=== PATIENT | female | born 1995 | race Caucasian/White ===

== ENCOUNTER 2018-06-20 16:47 | Emergency (ER) | payer OTHER ==
[2018-06-20 16:53] VITALS: RESP 16; TEMP 98.9
[2018-06-20] MEDS ORDERED: SODIUM CHLORIDE 0.9% 1,000 ML IV ONE (17:18)
--- NOTE | 2018-06-20 17:18 | ED ---
General Adult HPI - General Chief complaint: Vaginal Bleeding Stated complaint: Abd Pain Time Seen by Provider: 06/20/18 16:57 Source: patient, RN notes reviewed Mode of arrival: EMS Limitations: no limitations - History of Present Illness Initial comments: 23-year-old female with a history of type 2 diabetes on metformin presents to the emergency department for a chief complaint of heavy vaginal bleeding times one week. Patient states she is bleeding through a super tampon every hour or 2 an hour and a half. Patient states she is having sharp cramping pain from her low back shooting down to her groin area. Patient states she has experienced this before about 5 months ago and had heavy bleeding for one month. She did not follow-up with an [facility] at that time. Patient states she has pain when urinating as well. Patient denies urinary frequency or urgency. Patient denies any fevers or chills at home. Patient denies any concern for sexually transmitted diseases. Patient has a history of a uncomplicated vaginal delivery 3 years ago. She denies abdominal pain otherwise. She states she has been having loose stools without abdominal pain. Patient has no other complaints at this time including shortness of breath, chest pain, abdominal pain, nausea or vomiting, headache, or visual changes. Onset/Timin -: week(s) Location: pelvis Radiation: back Severity scale (1-10): 6 Quality: stabbing Consistency: intermittent Improves with: none Worsens with: none Associated Symptoms: other (vaginal bleeding) - Related Data Home Medications Medication Instructions Recorded Confirmed metFORMIN HCL [metFORMIN HCL ER] 1,000 mg PO BID 06/20/18 06/20/18 Previous Rx's Medication Instructions Recorded Cephalexin [Keflex] 500 mg PO Q8H 10 Days cap 06/20/18 Allergies Allergy/AdvReac Type Severity Reaction Status Date / Time No Known Allergies Allergy Verified 06/20/18 16:53 Review of Systems ROS Statement: Those systems with pertinent positive or pertinent negative responses have been documented in the HPI. ROS Other: All systems not noted in ROS Statement are negative. Past Medical History Past Medical History: Diabetes Mellitus History of Any Multi-Drug Resistant Organisms: None Reported Past Surgical History: No Surgical Hx Reported Past Psychological History: No Psychological Hx Reported Smoking Status: Current every day smoker Past Alcohol Use History: None Reported Past Drug Use History: None Reported General Exam Limitations: no limitations General appearance: alert, in no apparent distress Head exam: Present: atraumatic, normocephalic, normal inspection Eye exam: Present: normal appearance, PERRL, EOMI. Absent: scleral icterus, conjunctival injection, periorbital swelling ENT exam: Present: normal exam, mucous membranes moist Neck exam: Present: normal inspection, full ROM. Absent: tenderness, meningismus, lymphadenopathy Respiratory exam: Present: normal lung sounds bilaterally. Absent: respiratory distress, wheezes, rales, rhonchi, stridor Cardiovascular Exam: Present: regular rate, normal rhythm, normal heart sounds. Absent: systolic murmur, diastolic murmur, rubs, gallop, clicks GI/Abdominal exam: Present: soft, normal bowel sounds. Absent: distended, tenderness (No abdominal tenderness noted), guarding, rebound, rigid External exam: Present: normal external exam, other (Patient deferred chaperoned ). Absent: erythema, swelling, lesions, lacerations, ecchymosis Speculum exam: Present: vaginal bleeding (Patient has vaginal bleeding noted, no clots noted.). Absent: erythema, vaginal discharge, cervical discharge, foreign body, tissue, laceration By manual exam: Present: normal by manual exam. Absent: cervical motion tenderness, adnexal tenderness, adnexal mass (Exam limited by body habitus), uterine enlargement (Exam limited by body habitus), uterine tenderness Neurological exam: Present: alert, oriented X3, CN II-XII intact Psychiatric exam: Present: normal affect, normal mood Course Vital Signs 06/20/18 16:50 Temperature 98.9 F Pulse Rate 89 Respiratory 16 Rate Blood Pressure 156/74 O2 Sat by Pulse 98 Oximetry Medical Decision Making - Medical Decision Making 23-year-old well-appearing overweight female with a history of diabetes presents for heavy vaginal bleeding and pain 1 week. Patient has experienced this before about 5 months ago and has not had a period since. Patient is not on control. Vitals are within normal limits. Patient is afebrile. On exam no abdominal tenderness. Speculum exam reveals vaginal bleeding without significant tenderness. G/ C were sent to lab. Patient is not concerned for sexual transmitted diseases at this time. CBC and CMP were unremarkable. Hemoglobin 12.8. Ultrasound negative for torsion. At this time patient can go home. On reevaluation patient is feeling somewhat better from the pain and is well-appearing. Patient will follow up outpatient with Dr. bowling. Referral information was given. I did discuss returning if patient has any worsening symptoms such as shortness of breath or lightheadedness. - Lab Data Result diagrams: 06/20/18 17:28 06/20/18 17:28 Lab Results 06/20/18 06/20/18 06/20/18 Range/Units 17:23 17:23 17:28 WBC 13.7 H (3.8-10.6) k/uL RBC 5.16 (3.80-5.40) m/uL Hgb 12.4 (11.4-16.0) gm/dL Hct 39.4 (34.0-46.0) % MCV 76.3 L (80.0-100.0) fL MCH 24.0 L (25.0-35.0) pg MCHC 31.5 (31.0-37.0) g/dL RDW 16.3 H (11.5-15.5) % Plt Count 324 (150-450) k/uL Neutrophils % 70 % Lymphocytes % 21 % Monocytes % 5 % Eosinophils % 3 % Basophils % 0 % Neutrophils # 9.5 H (1.3-7.7) k/uL Lymphocytes # 2.8 (1.0-4.8) k/uL Monocytes # 0.7 (0-1.0) k/uL Eosinophils # 0.5 (0-0.7) k/uL Basophils # 0.1 (0-0.2) k/uL Hypochromasia Slight Anisocytosis Slight Microcytosis Slight Sodium (137-145) mmol/L Potassium (3.5-5.1) mmol/L Chloride (98-107) mmol/L Carbon Dioxide (22-30) mmol/L Anion Gap mmol/L BUN (7-17) mg/dL Creatinine (0.52-1.04) mg/dL Est GFR (CKD-EPI)AfAm (>60 ml/min/1.73 sqM) Est GFR (CKD-EPI)NonAf (>60 ml/min/1.73 sqM) Glucose (74-99) mg/dL Calcium (8.4-10.2) mg/dL Total Bilirubin (0.2-1.3) mg/dL AST (14-36) U/L ALT (9-52) U/L Alkaline Phosphatase (38-126) U/L Total Protein (6.3-8.2) g/dL Albumin (3.5-5.0) g/dL Urine Color Yellow Urine Appearance Clear (Clear) Urine pH 6.0 (5.0-8.0) Ur Specific [place] 1.028 (1.001-1.035) Urine Protein Trace H (Negative) Urine Glucose (UA) Negative (Negative) Urine Ketones Negative (Negative) Urine Blood Large H (Negative) Urine Nitrite Negative (Negative) Urine Bilirubin Negative (Negative) Urine Urobilinogen 2.0 (<2.0) mg/dL Ur Leukocyte Esterase Large H (Negative) Urine RBC 18 H (0-5) /hpf Urine WBC 34 H (0-5) /hpf Ur Squamous Epith Cells 2 (0-4) /hpf Urine Mucus Occasional H (None) /hpf Urine HCG, Qual Not Detected (Not Detectd) 06/20/18 Range/Units 17:28 WBC (3.8-10.6) k/uL RBC (3.80-5.40) m/uL Hgb (11.4-16.0) gm/dL Hct (34.0-46.0) % MCV (80.0-100.0) fL MCH (25.0-35.0) pg MCHC (31.0-37.0) g/dL RDW (11.5-15.5) % Plt Count (150-450) k/uL Neutrophils % % Lymphocytes % % Monocytes % % Eosinophils % % Basophils % % Neutrophils # (1.3-7.7) k/uL Lymphocytes # (1.0-4.8) k/uL Monocytes # (0-1.0) k/uL Eosinophils # (0-0.7) k/uL Basophils # (0-0.2) k/uL Hypochromasia Anisocytosis Microcytosis Sodium 142 (137-145) mmol/L Potassium 4.0 (3.5-5.1) mmol/L Chloride 111 H (98-107) mmol/L Carbon Dioxide 24 (22-30) mmol/L Anion Gap 7 mmol/L BUN 12 (7-17) mg/dL Creatinine 0.80 (0.52-1.04) mg/dL Est GFR (CKD-EPI)AfAm >90 (>60 ml/min/1.73 sqM) Est GFR (CKD-EPI)NonAf >90 (>60 ml/min/1.73 sqM) Glucose 98 (74-99) mg/dL Calcium 9.7 (8.4-10.2) mg/dL Total Bilirubin 0.2 (0.2-1.3) mg/dL AST 31 (14-36) U/L ALT 43 (9-52) U/L Alkaline Phosphatase 52 (38-126) U/L Total Protein 6.5 (6.3-8.2) g/dL Albumin 3.7 (3.5-5.0) g/dL Urine Color Urine Appearance (Clear) Urine pH (5.0-8.0) Ur Specific Calvin (1.001-1.035) Urine Protein (Negative) Urine Glucose (UA) (Negative) Urine Ketones (Negative) Urine Blood (Negative) Urine Nitrite (Negative) Urine Bilirubin (Negative) Urine Urobilinogen (<2.0) mg/dL Ur Leukocyte Esterase (Negative) Urine RBC (0-5) /hpf Urine WBC (0-5) /hpf Ur Squamous Epith Cells (0-4) /hpf Urine Mucus (None) /hpf Urine HCG, Qual (Not Detectd) Disposition Clinical Impression: Dysfunctional uterine bleeding Disposition: HOME SELF-CARE Condition: Good Instructions: Dysfunctional Uterine Bleeding (ED) Additional Instructions: Please follow up with [facility] in one to 2 days. Return to the emergency department if you have any worsening symptoms such as lightheadedness, shortness of breath or any other concerns. Prescriptions: Cephalexin [Keflex] 500 mg PO Q8H 10 Days cap Is patient prescribed a controlled substance at d/c from ED?: No Referrals: Lashonda Burt DO [Doctor of Osteopathic Medicine] - 1-2 days Time of Disposition: 19:31
[2018-06-20 17:40] LABS: Anisocytosis Slight; Basophils # (A) 0.1 k/uL (0-0.2); Basophils % (A) 0 %; Eosinophils # (A) 0.5 k/uL (0-0.7); Eosinophils % (A) 3 %; HCT 39.4 % (34.0-46.0); HGB 12.4 gm/dL (11.4-16.0); Hypochromasia Slight; Lymphocytes # (A) 2.8 k/uL (1.0-4.8); Lymphocytes % (A) 21 %; MCHC 31.5 g/dL (31.0-37.0); MCV 76.3 fL (80.0-100.0); Mean Platelet Volume 6.5; Microcytosis Slight; Monocytes # (A) 0.7 k/uL (0-1.0); Monocytes % (A) 5 %; Neutrophils # (A) 9.5 k/uL (1.3-7.7); Neutrophils % (A) 70 %; Platelet Count 324 k/uL (150-450); RBC 5.16 m/uL (3.80-5.40); RDW 16.3 % (11.5-15.5); WBC 13.7 k/uL (3.8-10.6)
[2018-06-20 17:47] LABS: Appearance,Urine Clear (Clear); Bilirubin,Urine Negative (Negative); Blood,Urine Large (Negative); Color,Urine Yellow; Glucose,Urine (UA) Negative (Negative); Ketones,Urine Negative (Negative); Leukocyte Esterase,Urine Large (Negative); Mucus,Urine Occasional /hpf; Nitrite,Urine Negative (Negative); Protein,Urine Trace (Negative); RBC,Urine 18 /hpf (0-5); Specific Gravity,Urine 1.028 (1.001-1.035); Squamous Epithelial Cell,Urine 2 /hpf (0-4); WBC,Urine 34 /hpf (0-5)
[2018-06-20 17:55] LABS: ALT 43 U/L (9-52); AST 31 U/L (14-36); Albumin 3.7 g/dL (3.5-5.0); Alkaline Phosphatase 52 U/L (38-126); Anion Gap 7 mmol/L; Blood Urea Nitrogen 12 mg/dL (7-17); Calcium 9.7 mg/dL (8.4-10.2); Carbon Dioxide 24 mmol/L (22-30); Chloride 111 mmol/L (98-107); Glucose 98 mg/dL (74-99); Sodium 142 mmol/L (137-145); Total Bilirubin 0.2 mg/dL (0.2-1.3); Total Protein 6.5 g/dL (6.3-8.2)
[2018-06-20] MEDS ORDERED: KETOROLAC 30 MG/ML 1 ML VIAL IVP STA (18:05)
--- NOTE | 2018-06-20 18:41 | US ---
EXAMINATION TYPE: US transvaginal DATE OF EXAM: 06/20/2018 COMPARISON: NONE CLINICAL HISTORY: Pain. dub, heavy cycles, larger habitus TECHNIQUE: Transvaginal (TV). Transvaginal sonographic images of the pelvis were acquired. EXAM MEASUREMENTS: Uterus: 9.0 x 4.2 x 5.8 cm Endometrial Stripe: 0.6 cm Right Ovary: 2.6 x 1.8 x 1.8 cm Left Ovary: 3.0 x 1.9 x 2.4 cm 1. Uterus: Anteverted wnl 2. Endometrium: wnl 3. Right Ovary: wnl 4. Left Ovary: wnl Spectral, color and waveform doppler imaging shows good arterial and venous flow within the ovaries ; there is no evidence for ovarian torsion. 5. Bilateral Adnexa: wnl 6. Posterior cul-de-sac: no free fluid seen IMPRESSION: Normal exam. No evidence of ovarian torsion. No adnexal mass or free fluid. Normal endome trium.
[2018-06-20 19:39] VITALS: BP 144/71; PULSE 78
[2018-06-21 15:45] LABS: C. trachomatis,PCR Negative (Neg,Equiv); Chlamydia trachomatis Source Vagina; N. gonorrhoeae,PCR Negative (Neg,Equiv); Neisseria Source Vagina
== END 2018-06-20 19:39 | disposition home or self-care (01) ==
LOC: EC 16:47
DX: N93.8 Other specified abnormal uterine and vaginal bleeding (principal); M54.5 Low back pain; E11.9 Type 2 diabetes mellitus without complications; F17.200 Nicotine dependence, unspecified, uncomplicated; Z79.84 Long term (current) use of oral hypoglycemic drugs
CPT/HCPCS: 36415; 80053; 85025; 81001; 81025; 87491; 87591; 87086; 93976; 76830; 99284; 96374; 96361; J1885

== ENCOUNTER 2019-01-03 15:47 | Emergency (ER) | payer OTHER ==
[2019-01-03 16:00] VITALS: BP 140/85; PULSE 84; RESP 18; TEMP 97.6
[2019-01-03] MEDS ORDERED: LIDOCAINE 1% INJ 10MG/ML (20 ML MDV) SQ STA (16:31)
--- NOTE | 2019-01-03 17:28 | ED ---
General Adult HPI - General Chief complaint: Skin/Abscess/Foreign Body Stated complaint: Nicole on groin area Time Seen by Provider: 01/03/19 16:10 Source: patient, RN notes reviewed, old records reviewed Mode of arrival: ambulatory Limitations: no limitations - History of Present Illness Initial comments: 23-year-old female patient past medical history of hidradenitis of provider presents to ED with abscess right axilla as well as left inguinal region. Patient reports that she has had recurrent abscesses for approximately the last 10 years. Patient recently moved to the area, is not currently followed by counseling center manager. Patient denies any other complaints. Patient denies any fevers chills nausea vomiting diarrhea chest pain shortness breath abdominal pain. Patient states that she is not . Systemic: Pt denies fatigue, myalgia, fever/chills, rash. Pt denies weakness, night sweats, weight loss. Neuro: Pt denies headache, visual disturbances, syncope or pre-syncope. HEENT: Pt denies ocular discharge or irritation, otalgia, rhinorrhea, pharyngitis or notable lymphadenopathy. Cardiopulmonary: Pt denies chest pain, SOB, heart palpitations, dyspnea on exertion. Abdominal/GI: Pt denies abdominal pain, n/v/d. : Pt denies dysuria, burning w/ urination, frequency/urgency. Denies new onset urinary or bowel incontinence. MSK: Pt denies myalgia, loss of strength or function in extremities. Neuro: Pt denies new onset weakness, paresthesias. - Related Data Home Medications Medication Instructions Recorded Confirmed Acetaminophen Tab [Tylenol] 1,200 mg PO Q12HR 01/03/19 01/03/19 Ibuprofen [Motrin Ib] 800 mg PO Q12HR 01/03/19 01/03/19 Previous Rx's Medication Instructions Recorded Sulfamethox-Tmp 800-160Mg [Bactrim 1 tab PO Q12HR #20 tab 01/03/19 DS 800-160 mg] Allergies Allergy/AdvReac Type Severity Reaction Status Date / Time No Known Allergies Allergy Verified 01/03/19 16:11 Review of Systems ROS Statement: Those systems with pertinent positive or pertinent negative responses have been documented in the HPI. ROS Other: All systems not noted in ROS Statement are negative. Past Medical History Past Medical History: Diabetes Mellitus History of Any Multi-Drug Resistant Organisms: None Reported Past Surgical History: No Surgical Hx Reported Past Psychological History: No Psychological Hx Reported Smoking Status: Current every day smoker Past Alcohol Use History: None Reported Past Drug Use History: None Reported General Exam - General Exam Comments Initial Comments: Constitutional: NAD, AOX3, Pt has pleasant affect. HEENT: NC/AT, trachea midline, neck supple, no lymphadenopathy. Posterior pharynx non erythematous, without exudates. External ears appear normal, without discharge. Mucous membranes moist. Eyes PERRLA, EOM intact. There is no scleral icterus. No pallor noted. Cardiopulmonary: RRR, no murmurs, rubs or gallops, no JVD noted. Lungs CTAB in anterior and posterior paulino. No peripheral edema. Abdominal exam: Abdomen soft and non-distended. Abdomen non-tender to palpation in all 4 quadrants. Bowel sounds active in LLQ. No hepatosplenomegaly. No ecchymosis Neuro: CN II-XII grossly intact. No nuchal rigidity. MSK: No posterior calf tenderness bilaterally, homans sign negative bilaterally. Posterior tibialis and radial pulse +2 bilaterally. Sensation intact in upper and lower extremities. Full active ROM in upper and lower extremities, 5/5 stregnth. Derm: Approximately 3 x 3 cm abscess noted in right axilla, small amount of purulent drainage was expressed. Approximately 3 x 3 cm noted left posterior inguinal region. Small amount of purulent fluid was expressed. Cultures taken of both. Limitations: no limitations Course Vital Signs 01/03/19 15:58 Temperature 97.6 F Pulse Rate 84 Respiratory 18 Rate Blood Pressure 140/85 O2 Sat by Pulse 96 Oximetry Procedures - Incision & Drainage Consent Obtained: verbal consent Indication: abscess Site: buttock (left inguinal region (2) ), upper extremity (right axillae (1) ) Size (cm): 3 Anesthetic Used: lidocaine 1% Amount (mLs): 3 I&D Cleaning Method: Alcohol Wipe I&D Drainage Obtained: Pus Culture Obtained?: Yes Patient Tolerated Procedure: well Medical Decision Making - Medical Decision Making 23-year-old female patient past medical history of hidradenitis of provider presents to ED with abscess right axilla as well as left inguinal region. Patient reports that she has had recurrent abscesses for approximately the last 10 years. Patient recently moved to the area, is not currently followed by counseling center manager. Patient denies any other complaints. Patient denies any fevers chills nausea vomiting diarrhea chest pain shortness breath abdominal pain. Patient states that she is not . Pt VSS, afebrile. Physical exam displayed: Approximately 3 x 3 cm abscess noted in right axilla, small amount of purulent drainage was expressed. Approximately 3 x 3 cm noted left posterior inguinal region. Small amount of purulent fluid was expressed. Cultures taken of both. Pt will be discharged with bactrim prescription. Pt will be given referral for PCP as well as counseling center manager. Pt will return to ER if condition worsens in anyway. Case discussed with Dr. Smith. Disposition Clinical Impression: Abscess Disposition: HOME SELF-CARE Condition: Stable Instructions (If sedation given, give patient instructions): Abscess Incision and Drainage (ED) Additional Instructions: Patient to adhere to previously discussed treatment plan and will take medication(s) as directed. Patient to follow up with PCP in 1-2 days. Patient to return to ED if symptoms do not improve. Please take medication as prescribed. Please follow-up both with counseling center manager as well as primary care provider - pick one to contact. Return to ER if condition worsens. Prescriptions: Sulfamethox-Tmp 800-160Mg [Bactrim DS 800-160 mg] 1 tab PO Q12HR #20 tab Is patient prescribed a controlled substance at d/c from ED?: No Referrals: None,Stated [Primary Care Provider] - 1-2 days [facility] [NON-STAFF] - 1-2 days Windy Sanchez MD [STAFF PHYSICIAN] - 1-2 days Ansley Moyer MD [REFERRING] - 1-2 days Joe Perera MD [STAFF PHYSICIAN] - 1-2 days
== END 2019-01-03 17:43 | disposition home or self-care (01) ==
LOC: EC 15:47
DX: L02.411 Cutaneous abscess of right axilla (principal); Z79.1 Long term (current) use of non-steroidal anti-inflammatories (NSAID); Z79.899 Other long term (current) drug therapy
CPT/HCPCS: 87070; 87205; 99283; 10060; J2001

== ENCOUNTER 2019-04-04 16:09 | Emergency (ER) | payer OTHER ==
[2019-04-04 16:18] VITALS: RESP 18; TEMP 98.1
--- NOTE | 2019-04-04 17:05 | ED ---
Female Urogenital HPI - General Chief complaint: Vaginal Bleeding Stated complaint: FEMALE , HEAVY BLEEDING X 1 MONTH Time Seen by Provider: 04/04/19 16:35 Source: patient Mode of arrival: ambulatory - History of Present Illness Initial comments: Patient is a 23-year-old female presenting to emergency Department with complaints of vaginal bleeding x 1 month. Patient states she tried to get into her PCP office but was unable to for another month and "wants the bleeding to s top." Patient states she has been going through 10- 20 tampons a day for the last month and having menstrual cramping as well. Patient states her PCP had her try control pills to help regulate her period and they did not work so she stopped taking them. Patient is denying any fever, chills, nausea, vomiting, other abdominal pain other than the cramping. Patient denies chance of . Patient denies any other complaints at this time. - Related Data Home Medications Medication Instructions Recorded Confirmed Acetaminophen Tab [Tylenol] 1,200 mg PO Q12HR 01/03/19 01/03/19 Ibuprofen [Motrin Ib] 800 mg PO Q12HR 01/03/19 01/03/19 Previous Rx's Medication Instructions Recorded Sulfamethox-Tmp 800-160Mg [Bactrim 1 tab PO Q12HR #20 tab 01/03/19 DS 800-160 mg] Allergies Allergy/AdvReac Type Severity Reaction Status Date / Time No Known Allergies Allergy Verified 04/04/19 16:18 Review of Systems ROS Statement: Those systems with pertinent positive or pertinent negative responses have been documented in the HPI. ROS Other: All systems not noted in ROS Statement are negative. Past Medical History Past Medical History: Diabetes Mellitus History of Any Multi-Drug Resistant Organisms: None Reported Past Surgical History: No Surgical Hx Reported Past Psychological History: No Psychological Hx Reported Smoking Status: Current every day smoker Past Alcohol Use History: None Reported Past Drug Use History: None Reported General Exam - General Exam Comments Initial Comments: GENERAL: Well-appearing, well-nourished and in no acute distress. HEAD: Atraumatic, normocephalic. EYES: Pupils equal round and reactive to light, extraocular movements intact, sclera anicteric, conjunctiva are normal. ENT: Nares patent, oropharynx clear without exudates. Moist mucous membranes. NECK: Normal range of motion, supple without lymphadenopathy or JVD. LUNGS: Breath sounds clear to auscultation bilaterally and equal. No wheezes r ales or rhonchi. HEART: Regular rate and rhythm without murmurs, rubs or gallops. ABDOMEN: Soft, nontender, normoactive bowel sounds. No guarding, no rebound. No masses appreciated. : Deferred, declined at this time EXTREMITIES: Normal range of motion, no pitting or edema. No clubbing or cyanos is. NEUROLOGICAL: Cranial nerves II through XII grossly intact. Normal speech, normal gait. PSYCH: Normal mood, normal affect. SKIN: Warm, Dry, normal turgor, no rashes or lesions noted. Course Vital Signs 04/04/19 04/04/19 16:16 18:09 Temperature 98.1 F 98.1 F Pulse Rate 92 91 Respiratory 18 18 Rate Blood Pressure 138/80 151/76 O2 Sat by Pulse 97 95 Oximetry Medical Decision Making - Medical Decision Making Patient is a 23-year-old female complaints of vaginal bleeding times one month. Patient states her PCP had her do a trial of control pills the patient stopped after 2 weeks after the bleeding did not stop. Patient admits to mild lower abdominal cramping but no abdominal pain. Patient also denies fever, chills, nausea, vomiting. Patient declined vaginal exam at this time. Patient's CBC is within normal limits, hemoglobin is 11.0. CMP is within normal limits. UA shows signs of dehydration with 2+ protein and trace ketones. Patient is not . Patient was given referral for [facility] and will follow up with them and/or her PCP for further treatment. Patient will be discharged home and she is in agreement with this plan. Return parameters were discussed with the patient and she verbalized understanding. Case is discussed with Dr. Farah. - Lab Data Result diagrams: 04/04/19 17:21 04/04/19 17:21 Lab Results 04/04/19 04/04/19 04/04/19 Range/Units 17:21 17:21 17:21 WBC 10.3 (3.8-10.6) k/uL RBC 4.90 (3.80-5.40) m/uL Hgb 11.0 L (11.4-16.0) gm/dL Hct 35.4 (34.0-46.0) % MCV 72.3 L (80.0-100.0) fL MCH 22.4 L (25.0-35.0) pg MCHC 31.0 (31.0-37.0) g/dL RDW 16.1 H (11.5-15.5) % Plt Count 430 (150-450) k/uL Neutrophils % 56 % Lymphocytes % 32 % Monocytes % 5 % Eosinophils % 4 % Basophils % 1 % Neutrophils # 5.8 (1.3-7.7) k/uL Lymphocytes # 3.2 (1.0-4.8) k/uL Monocytes # 0.6 (0-1.0) k/uL Eosinophils # 0.4 (0-0.7) k/uL Basophils # 0.1 (0-0.2) k/uL Hypochromasia Marked Anisocytosis Slight Microcytosis Moderate Sodium 142 (137-145) mmol/L Potassium 4.2 (3.5-5.1) mmol/L Chloride 113 H (98-107) mmol/L Carbon Dioxide 20 L (22-30) mmol/L Anion Gap 9 mmol/L BUN 13 (7-17) mg/dL Creatinine 0.70 (0.52-1.04) mg/dL Est GFR (CKD-EPI)AfAm >90 (>60 ml/min/1.73 sqM) Est GFR (CKD-EPI)NonAf >90 (>60 ml/min/1.73 sqM) Glucose 86 (74-99) mg/dL Calcium 9.6 (8.4-10.2) mg/dL Total Bilirubin 0.3 (0.2-1.3) mg/dL AST 31 (14-36) U/L ALT 36 (9-52) U/L Alkaline Phosphatase 61 (38-126) U/L Total Protein 6.9 (6.3-8.2) g/dL Albumin 3.8 (3.5-5.0) g/dL Urine Color Urine Appearance (Clear) Urine pH (5.0-8.0) Ur Specific [place] (1.001-1.035) Urine Protein (Negative) Urine Glucose (UA) (Negative) Urine Ketones (Negative) Urine Blood (Negative) Urine Nitrite (Negative) Urine Bilirubin (Negative) Urine Urobilinogen (<2.0) mg/dL Ur Leukocyte Esterase (Negative) Urine RBC (0-5) /hpf Ur Squamous Epith Cells (0-4) /hpf Urine Mucus (None) /hpf Urine HCG, Qual Not Detected (Not Detectd) 04/04/19 Range/Units 17:21 WBC (3.8-10.6) k/uL RBC (3.80-5.40) m/uL Hgb (11.4-16.0) gm/dL Hct (34.0-46.0) % MCV (80.0-100.0) fL MCH (25.0-35.0) pg MCHC (31.0-37.0) g/dL RDW (11.5-15.5) % Plt Count (150-450) k/uL Neutrophils % % Lymphocytes % % Monocytes % % Eosinophils % % Basophils % % Neutrophils # (1.3-7.7) k/uL Lymphocytes # (1.0-4.8) k/uL Monocytes # (0-1.0) k/uL Eosinophils # (0-0.7) k/uL Basophils # (0-0.2) k/uL Hypochromasia Anisocytosis Microcytosis Sodium (137-145) mmol/L Potassium (3.5-5.1) mmol/L Chloride (98-107) mmol/L Carbon Dioxide (22-30) mmol/L Anion Gap mmol/L BUN (7-17) mg/dL Creatinine (0.52-1.04) mg/dL Est GFR (CKD-EPI)AfAm (>60 ml/min/1.73 sqM) Est GFR (CKD-EPI)NonAf (>60 ml/min/1.73 sqM) Glucose (74-99) mg/dL Calcium (8.4-10.2) mg/dL Total Bilirubin (0.2-1.3) mg/dL AST (14-36) U/L ALT (9-52) U/L Alkaline Phosphatase (38-126) U/L Total Protein (6.3-8.2) g/dL Albumin (3.5-5.0) g/dL Urine Color Red Urine Appearance Cloudy H (Clear) Urine pH 6.0 (5.0-8.0) Ur Specific [place] 1.030 (1.001-1.035) Urine Protein 2+ H (Negative) Urine Glucose (UA) Negative (Negative) Urine Ketones Trace H (Negative) Urine Blood Large H (Negative) Urine Nitrite Negative (Negative) Urine Bilirubin Negative (Negative) Urine Urobilinogen <2.0 (<2.0) mg/dL Ur Leukocyte Esterase Moderate H (Negative) Urine RBC >182 H (0-5) /hpf Ur Squamous Epith Cells 2 (0-4) /hpf Urine Mucus Occasional H (None) /hpf Urine HCG, Qual (Not Detectd) Disposition Clinical Impression: Menorrhagia Disposition: HOME SELF-CARE Condition: Stable Instructions (If sedation given, give patient instructions): Menstruation (ED) Additional Instructions: Please return to the Emergency Department if symptoms worsen or any other concerns. Follow-up with PCP and/or [facility]. Is patient prescribed a controlled substance at d/c from ED?: No Referrals: Jean Monson MD [Primary Care Provider] - 1-2 days Laci Gonzalez DO [Doctor of Osteopathic Medicine] - 1-2 days
[2019-04-04 17:36] LABS: Anisocytosis Slight; Basophils # (A) 0.1 k/uL (0-0.2); Basophils % (A) 1 %; Eosinophils # (A) 0.4 k/uL (0-0.7); Eosinophils % (A) 4 %; HCT 35.4 % (34.0-46.0); Hypochromasia Marked; Lymphocytes # (A) 3.2 k/uL (1.0-4.8); Lymphocytes % (A) 32 %; MCH 22.4 pg (25.0-35.0); MCV 72.3 fL (80.0-100.0); Mean Platelet Volume 7.1; Microcytosis Moderate; Monocytes # (A) 0.6 k/uL (0-1.0); Monocytes % (A) 5 %; Neutrophils # (A) 5.8 k/uL (1.3-7.7); Neutrophils % (A) 56 %; Platelet Count 430 k/uL (150-450); RDW 16.1 % (11.5-15.5); WBC 10.3 k/uL (3.8-10.6)
[2019-04-04 17:43] LABS: Appearance,Urine Cloudy (Clear); Bilirubin,Urine Negative (Negative); Blood,Urine Large (Negative); Color,Urine Red; Glucose,Urine (UA) Negative (Negative); Ketones,Urine Trace (Negative); Leukocyte Esterase,Urine Moderate (Negative); Mucus,Urine Occasional /hpf; Nitrite,Urine Negative (Negative); Protein,Urine 2+ (Negative); RBC,Urine >182 /hpf (0-5); Squamous Epithelial Cell,Urine 2 /hpf (0-4); Urobilinogen,Urine <2.0 mg/dL (<2.0)
[2019-04-04 17:44] LABS: ALT 36 U/L (9-52); AST 31 U/L (14-36); African American GFR (CKD) >90 (>60 ml/min/1.73 sqM); Albumin 3.8 g/dL (3.5-5.0); Alkaline Phosphatase 61 U/L (38-126); Anion Gap 9 mmol/L; Blood Urea Nitrogen 13 mg/dL (7-17); Calcium 9.6 mg/dL (8.4-10.2); Carbon Dioxide 20 mmol/L (22-30); Chloride 113 mmol/L (98-107); Glucose 86 mg/dL (74-99); Potassium 4.2 mmol/L (3.5-5.1); Sodium 142 mmol/L (137-145); Total Bilirubin 0.3 mg/dL (0.2-1.3); Total Protein 6.9 g/dL (6.3-8.2)
[2019-04-04 18:10] VITALS: BP 151/76; PULSE 91
== END 2019-04-04 18:09 | disposition home or self-care (01) ==
LOC: EC 16:09
DX: N92.0 Excessive and frequent menstruation with regular cycle (principal); F17.200 Nicotine dependence, unspecified, uncomplicated; Z79.899 Other long term (current) drug therapy; Z79.1 Long term (current) use of non-steroidal anti-inflammatories (NSAID); Z53.20 Procedure and treatment not carried out because of patient's decision for unspecified reasons
CPT/HCPCS: 36415; 80053; 81001; 81025; 85025; 99284

== ENCOUNTER 2019-04-19 16:14 | Emergency (ER) | payer OTHER ==
[2019-04-19 16:19] VITALS: BP 149/87; PULSE 100; RESP 20; TEMP 98
--- NOTE | 2019-04-19 16:26 | ED ---
Lower Extremity Injury HPI - General Chief Complaint: Extremity Injury, Lower Stated Complaint: Ankle injury Time Seen by Provider: 04/19/19 16:16 Source: patient Mode of arrival: ambulatory Limitations: no limitations - History of Present Illness Initial Comments: 24yo female presenting today for chief complaint of left ankle pain 1 hour. Patient states she has prior to arrival she was walking distracted looking at a dog when she stepped on an uneven piece of grass/sidewalk and inverted her left ankle inward. Patient states she did fall to both knees she denies any abrasions lacerations and inability to weight-bear. Patient state she is able to walk on the left ankle. Patient states after the fall she noted left ankle pain denies foot pain denies bruising. Patient denies any ankle swelling. Patient denies any head injury to the head or neck. Denies any pain of the upper extremities wrist or shoulders. Patient was concerned of the left ankle pain and wanted to make sure is not fractured presents emergency department for evaluation. Upon arrival to emergency Department patient was and laboratory. She is weightbearing on the left ankle. No signs of acute distress patient appears well - Related Data Home Medications Medication Instructions Recorded Confirmed Acetaminophen Tab [Tylenol] 1,200 mg PO Q12HR 01/03/19 01/03/19 RX: Ibuprofen [Motrin Ib] 800 mg PO Q12HR 01/03/19 01/03/19 Previous Rx's Medication Instructions Recorded Sulfamethox-Tmp 800-160Mg [Bactrim 1 tab PO Q12HR #20 tab 01/03/19 DS 800-160 mg] Allergies Allergy/AdvReac Type Severity Reaction Status Date / Time No Known Allergies Allergy Verified 04/19/19 16:19 Review of Systems ROS Statement: Those systems with pertinent positive or pertinent negative responses have been documented in the HPI. ROS Other: All systems not noted in ROS Statement are negative. Past Medical History Past Medical History: Diabetes Mellitus History of Any Multi-Drug Resistant Organisms: None Reported Past Surgical History: No Surgical Hx Reported Past Psychological History: No Psychological Hx Reported Smoking Status: Current every day smoker Past Alcohol Use History: None Reported Past Drug Use History: None Reported General Exam - General Exam Comments Initial Comments: General: The patient is awake and alert, in no distress, and does not appear acutely ill. Eye: Extra-ocular movements are intact. No nystagmus. There is normal conjunctiva bilaterally. No signs of icterus. Cardiovascular: There is a regular rate and rhythm. No murmur, rub or gallop is appreciated. Respiratory: Lungs are clear to auscultation, respirations are non-labored, breath sounds are equal. No wheezes, stridor, rales, or rhonchi. Gastrointestinal: Soft, non-distended, non-tender abdomen without masses or organomegaly noted. There is no rebound or guarding present. No CVA tenderness. Bowel sounds are unremarkable. Musculoskeletal: Upon inspection of the ankles bilaterally there is no evidence of soft tissue injury. No noted swelling of the ankles bilaterally. Inspection of the knees reveals no abrasion soft tissue swelling or redness. There is no swelling of the knee joints. Extensor mechanism is intact bilaterally. No pain or difficulty with range of motion of the knees. Patient has pain with range motion of the left ankle. This does appear mild, no grimacing or protective posturing. She is able to weight-bear without difficulty. Strength 5/5 at the knees and ankles bilaterally. There is diffuse tenderness to palpation over the ankle mortise. Patient has no tenderness to palpation of the forefoot. Sensation intact both proximal distal to injury site. Radial and DP pulses equal bilaterally 2+. No bruising noted on the plantar surface of the foot. Neurological: A&O x 3. CN II-XII intact, There are no obvious motor or sensory deficits. Coordination appears grossly intact. Speech is normal. Skin: Skin is warm and dry and no rashes or lesions are noted. Psychiatric: Cooperative, appropriate mood & affect, normal judgment. Limitations: no limitations Course Vital Signs 04/19/19 16:16 Temperature 98 F Pulse Rate 100 Respiratory 20 Rate Blood Pressure 149/87 O2 Sat by Pulse 96 Oximetry Medical Decision Making - Medical Decision Making Appearing 24yo female presented for left ankle sprain after inversion injury. Occurred today. No obvious injury on physical examination equal comparison to the right. Assessment from tenderness with range of motion. Patient is able to weight-bear and walk without difficulty. Imaging studies revealing no acute osseous process. Patient is placed in a air stirrup given Rice instruction. Repeat neurovascular exam after splinting was unchanged from initial. Patient neurovascular intact. Compartments are soft and compressible. No pain at the knees. At this time feel patient is stable for discharge with outpatient primary care follow-up. Disposition Clinical Impression: Left ankle sprain Disposition: HOME SELF-CARE Condition: Good Instructions (If sedation given, give patient instructions): Ankle Sprain (ED), R.I.C.E. Treatment (ED) Additional Instructions: Please use medication as discussed. Please follow-up with family doctor in 7 days for re-evaluation. Please return to emergency room if the symptoms increase or worsen or for any other concerns. Is patient prescribed a controlled substance at d/c from ED?: No Referrals: Jean Monson MD [Primary Care Provider] - 1-2 days Time of Disposition: 16:59
--- NOTE | 2019-04-19 16:56 | XR ---
EXAMINATION TYPE: XR ankle complete LT DATE OF EXAM: 04/19/2019 COMPARISON: NONE HISTORY: Pain FINDINGS: Three views of the ankle demonstrate the ankle mortise to be intact and symmetric. The joint spaces are preserved. The osseous structures are intact. Soft tissue edema noted. IMPRESSION: 1. No definite acute fracture or dislocation, if symptoms persist follow-up study in 7 to 10 days wou ld be suggested.
== END 2019-04-19 17:00 | disposition home or self-care (01) ==
LOC: EC 16:14
DX: S93.402A Sprain of unspecified ligament of left ankle, initial encounter (principal); F17.200 Nicotine dependence, unspecified, uncomplicated; Z79.1 Long term (current) use of non-steroidal anti-inflammatories (NSAID); Z79.899 Other long term (current) drug therapy; W18.31XA Fall on same level due to stepping on an object, initial encounter; X50.9XXA Other and unspecified overexertion or strenuous movements or postures, initial encounter; Y92.219 Unspecified school as the place of occurrence of the external cause
CPT/HCPCS: 29515; 99283

== ENCOUNTER → 2020-04-19 | Outpatient (CLI) | payer BC, OTHER ==
--- NOTE | 2020-04-19 10:31 | US ---
EXAMINATION TYPE: US pelvis complete transvag DATE OF EXAM: 04/19/2020 COMPARISON: US 06/20/2018 CLINICAL HISTORY: N92.1 METRORRHAGIA. Heavy bleeding x4 days TECHNIQUE: . Transabdominal sonographic images of the pelvis were acquired. Transvaginal sonographi c images were medically necessary to better assess the following anatomy: Uterus and ovaries Date of LMP: Patient states she had a cycle around 2 weeks ago EXAM MEASUREMENTS: Uterus: 7.6 x 3.8 x 4.8 cm Endometrial Stripe: 0.8 cm Right Ovary: 3.7 x 1.9 x 2.7 cm Left Ovary: 3.0 x 2.1 x 1.9 cm 1. Uterus: Anteverted wnl 2. Endometrium: wnl 3. Right Ovary: wnl 4. Left Ovary: wnl 5. Bilateral Adnexa: wnl 6. Posterior cul-de-sac: wnl Color flow noted right ovary IMPRESSION: No significant abnormalities evident.
[2020-04-19 10:40] LABS: Anisocytosis Slight; HCT 36.2 % (34.0-46.0); HGB 11.2 gm/dL (11.4-16.0); Hypochromasia Moderate; MCH 22.4 pg (25.0-35.0); MCHC 30.9 g/dL (31.0-37.0); MCV 72.7 fL (80.0-100.0); Mean Platelet Volume 7.3; Microcytosis Moderate; Platelet Count 431 k/uL (150-450); RBC 4.98 m/uL (3.80-5.40); RDW 16.9 % (11.5-15.5); WBC 13.5 k/uL (3.8-10.6)
[2020-04-19 10:52] LABS: ALT 35 U/L (4-34); AST 34 U/L (14-36); African American GFR (CKD) >90 (>60 ml/min/1.73 sqM); Albumin 4.1 g/dL (3.5-5.0); Alkaline Phosphatase 60 U/L (38-126); Anion Gap 7 mmol/L; Blood Urea Nitrogen 12 mg/dL (7-17); Calcium 9.8 mg/dL (8.4-10.2); Carbon Dioxide 24 mmol/L (22-30); Chloride 111 mmol/L (98-107); Glucose 140 mg/dL (74-99); Non-African American GFR(CKD) >90 (>60 ml/min/1.73 sqM); Potassium 4.2 mmol/L (3.5-5.1); Sodium 142 mmol/L (137-145); Total Bilirubin 0.4 mg/dL (0.2-1.3); Total Protein 7.2 g/dL (6.3-8.2)
[2020-04-19 11:07] LABS: HCG,Quantitative Serum <2.4 mIU/mL
== END | disposition home or self-care (01) ==
LOC: RADUSWWP 09:55
PROVIDERS: ATTEND Obstetrics & Gynecology
DX: N92.1 Excessive and frequent menstruation with irregular cycle (principal); N92.0 Excessive and frequent menstruation with regular cycle; R10.2 Pelvic and perineal pain
CPT/HCPCS: 76830; 76856; 80053; 84702; 85027

== ENCOUNTER 2020-09-25 18:33 | Emergency (ER) | payer BC, OTHER ==
[2020-09-25 18:43] VITALS: BP 164/81; TEMP 98
[2020-09-25] MEDS ORDERED: DOXYCYCLINE 100 MG CAP PO STA (19:18)
[2020-09-25] MEDS ORDERED: LIDOCAINE 1% INJ 10MG/ML (20 ML MDV) SQ ONE (19:18)
--- NOTE | 2020-09-25 19:24 | ED ---
Skin/Abscess/FB HPI - General Chief complaint: Skin/Abscess/Foreign Body Stated complaint: abcesses Time Seen by Provider: 09/25/20 19:02 Source: patient Mode of arrival: ambulatory Limitations: no limitations - History of Present Illness Initial comments: 25-year-old female patient presents to the emergency department today for evaluation of multiple abscesses. Patient has past history significant for hidradenitis suppurativa. States that she has had an abscess to the right buttock for the last 3 weeks. States it keeps getting larger and more painful. States she has one to each of her medial thighs. She denies any fever or chills. Denies nausea or vomiting. States that she has been on antibiotic regimens in the past that have not helped with her condition. No antibiotics recently. Denies any chance of . Patient denies any recent rash, cough, shortness of breath, chest pain, abdominal pain, nausea, vomiting, diarrhea, constipation, back pain, numbness, tingling, dizziness, weakness, hematuria, dysuria, urinary urgency, urinary frequency, headache, visual changes, or any other complaints. - Related Data Home Medications Medication Instructions Recorded Confirmed B Complex-Vit C-Vit E-Zinc [Z-Bec] 1 tab PO DAILY 03/01/20 03/01/20 Ergocalciferol [Vitamin D2] 50,000 unit PO Q7D 03/01/20 03/01/20 Zinc 50 mg PO DAILY 03/01/20 03/01/20 metFORMIN HCL [Glucophage] 500 mg PO BID 03/01/20 03/01/20 Previous Rx's Medication Instructions Recorded Doxycycline Hyclate 100 mg PO Q12H #28 tab 09/25/20 Fluconazole [Diflucan] 150 mg PO ONCE #2 tab 09/25/20 Ibuprofen [Motrin] 600 mg PO Q8HR PRN #30 tab 09/25/20 Allergies Allergy/AdvReac Type Severity Reaction Status Date / Time No Known Allergies Allergy Verified 03/01/20 15:17 Review of Systems ROS Statement: Those systems with pertinent positive or pertinent negative responses have been documented in the HPI. ROS Other: All systems not noted in ROS Statement are negative. Past Medical History Past Medical History: Diabetes Mellitus, Hypertension, Thyroid Disorder Additional Past Medical History / Comment(s): Hydroadenitis Suppurativa, Vitamin d deficiency History of Any Multi-Drug Resistant Organisms: None Reported Past Surgical History: No Surgical Hx Reported Past Anesthesia/Blood Transfusion Reactions: No Reported Reaction Past Psychological History: Anxiety Smoking Status: Current every day smoker Past Alcohol Use History: None Reported Past Drug Use History: None Reported General Exam Limitations: no limitations General appearance: alert, in no apparent distress, other (Physical well- developed, well-nourished adult female patient in no acute distress. Vital sig ns upon presentation are temperature 98.0F, pulse 113, respirations 20, blood pressure 164/81, pulse ox 97% on room air.) ENT exam: Present: normal exam, normal oropharynx, mucous membranes moist Respiratory exam: Present: normal lung sounds bilaterally. Absent: respiratory distress, wheezes, rales, rhonchi, stridor Cardiovascular Exam: Present: regular rate, normal rhythm, normal heart sounds. Absent: systolic murmur, diastolic murmur, rubs, gallop, clicks Neurological exam: Present: alert, oriented X3, CN II-XII intact Psychiatric exam: Present: normal affect, normal mood Skin exam: Present: warm, dry, intact, normal color. Absent: rash Course Vital Signs 09/25/20 09/25/20 18:40 20:39 Temperature 98.0 F Pulse Rate 113 H 101 H Respiratory 20 16 Rate Blood Pressure 164/81 O2 Sat by Pulse 97 95 Oximetry Procedures - Incision & Drainage Consent Obtained: verbal consent, written consent Indication: abscess Site: buttock (Right), other (2cm abscess right medial thigh, 4cm abscess left medial thigh) Size (cm): 5 (Right buttock) Anesthetic Used: lidocaine 1% Amount (mLs): 6 I&D Cleaning Method: Betadine Scalpel Used: #11 I&D Drainage Obtained: Pus, Blood Culture Obtained?: Yes Patient Tolerated Procedure: well, no complications Medical Decision Making - Medical Decision Making 25-year-old female patient with past medical history significant for hidradenitis suppurativa presents to the emergency department today for evaluation of multiple abscesses. Physical examination did reveal 5 cm abscess to the right buttock, 2 cm abscess to the right medial thigh, 4 cm abscess to the left medial thigh. Each abscess was incised and drained. I did obtain pus and blood. Culture was obtained from the right buttock. She'll be started on doxycycline. She is instructed to follow-up with her primary care physician for recheck in 1-2 days. She is instructed to follow-up with surgery if her symptoms did improve with the medication. She is educated regarding sitz baths and warm compresses. Return parameters discussed in detail. She verbalizes understanding and agrees with this plan. Disposition Clinical Impression: Abscess of right buttock, Abscess of right thigh, Abscess of left thigh Disposition: HOME SELF-CARE Condition: Good Instructions (If sedation given, give patient instructions): Abscess Incision and Drainage (ED) Additional Instructions: Apply warm compresses or take warm baths is soft as possible. Promote drainage from the areas. Complete antibiotic prescription in full. Follow-up with your primary care physician for recheck in 1-2 days. Consider follow-up with surgeon at the antibiotic does not improve symptoms. Return for any other new, worsening, or concerning symptoms. Prescriptions: Fluconazole [Diflucan] 150 mg PO ONCE #2 tab Doxycycline Hyclate 100 mg PO Q12H #28 tab Ibuprofen [Motrin] 600 mg PO Q8HR PRN #30 tab PRN Reason: Pain Is patient prescribed a controlled substance at d/c from ED?: No Referrals: Jean Monson MD [Primary Care Provider] - 1-2 days Wood Ragland MD [STAFF PHYSICIAN] - 1-2 days Time of Disposition: 20:27
[2020-09-25] MEDS ORDERED: ACET/COD 300 MG/30 MG STARTER PACK 6 TAB BTL PO STA (20:22)
[2020-09-25 20:40] VITALS: PULSE 101; RESP 16
== END 2020-09-25 20:40 | disposition home or self-care (01) ==
LOC: EC 18:33
DX: L02.31 Cutaneous abscess of buttock (principal); L02.415 Cutaneous abscess of right lower limb; L02.416 Cutaneous abscess of left lower limb; E11.9 Type 2 diabetes mellitus without complications; I10 Essential (primary) hypertension; F17.200 Nicotine dependence, unspecified, uncomplicated; Z79.84 Long term (current) use of oral hypoglycemic drugs
CPT/HCPCS: 87070; 87205; 99283; 10060; J2001

== ENCOUNTER 2020-12-09 18:17 | Emergency (ER) | payer BC, OTHER ==
[2020-12-09 18:21] VITALS: BP 156/89; PULSE 110; RESP 20; TEMP 97.3
[2020-12-09] MEDS ORDERED: LIDOCAINE 1% INJ 10MG/ML (20 ML MDV) SQ ONE (18:41)
--- NOTE | 2020-12-09 19:10 | ED ---
Skin/Abscess/FB HPI - General Chief complaint: Skin/Abscess/Foreign Body Stated complaint: abscess Source: patient, RN notes reviewed Mode of arrival: wheelchair Limitations: no limitations - History of Present Illness MD complaint: abscess/boil -: week(s) (1) Location: buttocks (right buttock ) Severity scale (1-10): 8 Quality: burning Consistency: constant Improves with: other (laying down) Worsens with: movement (standing or sittin) Context: other (hydradenitis hx) Associated symptoms: denies other symptoms Treatments Prior to Arrival: none - Related Data Home Medications Medication Instructions Recorded Confirmed B Complex-Vit C-Vit E-Zinc [Z-Bec] 1 tab PO DAILY 03/01/20 03/01/20 Ergocalciferol [Vitamin D2] 50,000 unit PO Q7D 03/01/20 03/01/20 Zinc 50 mg PO DAILY 03/01/20 03/01/20 metFORMIN HCL [Glucophage] 500 mg PO BID 03/01/20 03/01/20 Previous Rx's Medication Instructions Recorded Doxycycline Hyclate 100 mg PO Q12H #28 tab 09/25/20 Fluconazole [Diflucan] 150 mg PO ONCE #2 tab 09/25/20 Ibuprofen [Motrin] 600 mg PO Q8HR PRN #30 tab 09/25/20 Doxycycline Monohydrate [Monodox] 100 mg PO BID 1 Days #2 cap 12/09/20 Fluconazole [Diflucan] 150 mg PO DAILY 1 Days #1 tab 12/09/20 Allergies Allergy/AdvReac Type Severity Reaction Status Date / Time No Known Allergies Allergy Verified 12/09/20 18:21 Review of Systems ROS Statement: Those systems with pertinent positive or pertinent negative responses have been documented in the HPI. ROS Other: All systems not noted in ROS Statement are negative. Past Medical History Past Medical History: Diabetes Mellitus, Hypertension, Thyroid Disorder Additional Past Medical History / Comment(s): Hydroadenitis Suppurativa, Vitamin d deficiency History of Any Multi-Drug Resistant Organisms: None Reported Past Surgical History: No Surgical Hx Reported Past Anesthesia/Blood Transfusion Reactions: No Reported Reaction Past Psychological History: Anxiety Smoking Status: Current every day smoker Past Alcohol Use History: None Reported Past Drug Use History: None Reported General Exam Limitations: no limitations General appearance: alert, in no apparent distress Head exam: Present: atraumatic Eye exam: Present: normal appearance, PERRL, EOMI. Absent: scleral icterus, conjunctival injection, periorbital swelling ENT exam: Present: normal exam, mucous membranes moist Neck exam: Present: normal inspection. Absent: tenderness, meningismus, lymphadenopathy Respiratory exam: Present: normal lung sounds bilaterally. Absent: respiratory distress, wheezes, rales, rhonchi, stridor Cardiovascular Exam: Present: regular rate, normal rhythm, normal heart sounds. Absent: systolic murmur, diastolic murmur, rubs, gallop, clicks Neurological exam: Present: alert, oriented X3, CN II-XII intact Psychiatric exam: Present: normal affect, normal mood Skin exam: Present: warm, dry, intact, normal color, other (3cm x 3cm abscess fluctuant area 1cm x 1cm at raised center). Absent: rash Course Vital Signs 12/09/20 18:18 Temperature 97.3 F L Pulse Rate 110 H Respiratory 20 Rate Blood Pressure 156/89 O2 Sat by Pulse 97 Oximetry Procedures - Incision & Drainage Consent Obtained: verbal consent Site: buttock (right) Anesthetic Used: lidocaine 1% Amount (mLs): 1 I&D Cleaning Method: Alcohol Wipe Needle Aspiration Performed?: No Irrigation Performed?: No I&D Drainage Obtained: Pus, Blood Culture Obtained?: Yes Complications: bleeding (controlled) Patient Tolerated Procedure: well Medical Decision Making - Medical Decision Making 1 week of right buttock abscess, History of hidradenitis with last I&D in August,. Patient states doxycycline prescribed in past with good results. Also requesting diflucan to prevent yeast infection. Patient will follow up with her primary care doctor Dr. Monson next week and return with any problems. Case discussed with who is agreeable with this plan of care. Disposition Clinical Impression: Abscess of buttock, right Disposition: HOME SELF-CARE Condition: Good Instructions (If sedation given, give patient instructions): Abscess (ED), Abscess Incision and Drainage (ED) Additional Instructions: Warm moist compresses twice a day follow-up with your primary doctor this week and return if fever increased pain or bleeding. Prescriptions: Fluconazole [Diflucan] 150 mg PO DAILY 1 Days #1 tab Doxycycline Monohydrate [Monodox] 100 mg PO BID 1 Days #2 cap Is patient prescribed a controlled substance at d/c from ED?: No Referrals: Jean Monson MD [Primary Care Provider] - 1-2 days Time of Disposition: 19:09
== END 2020-12-09 19:18 | disposition home or self-care (01) ==
LOC: EC 18:17
DX: L02.31 Cutaneous abscess of buttock (principal); E11.9 Type 2 diabetes mellitus without complications; F17.200 Nicotine dependence, unspecified, uncomplicated; I10 Essential (primary) hypertension; Z79.84 Long term (current) use of oral hypoglycemic drugs; Z79.1 Long term (current) use of non-steroidal anti-inflammatories (NSAID)
CPT/HCPCS: 87070; 87205; 99283; 10060; J2001

== ENCOUNTER 2020-12-25 09:28 | Emergency (ER) | payer OTHER ==
[2020-12-25 09:59] VITALS: RESP 18
[2020-12-25] MEDS ORDERED: LIDOCAINE 1% INJ 10MG/ML (20 ML MDV) SQ ONE (11:17)
--- NOTE | 2020-12-25 12:07 | ED ---
General Adult HPI - General Chief complaint: Skin/Abscess/Foreign Body Stated complaint: Abscess Time Seen by Provider: 12/25/20 10:55 Source: patient Mode of arrival: ambulatory Limitations: no limitations - History of Present Illness Initial comments: 25-year-old female with a past medical history of hidradenitis, diabetes mellitus, hypertension presents to the emergency department for chief related abscess. Patient has an abscess to her left inner upper thigh. It has been there for a few days. States it is now hurting when she is walking. She decided to come in. No fevers or chills. Patient was recently on doxycycline for another abscess.Patient has no other complaints at this time including shortness of breath, chest pain, abdominal pain, nausea or vomiting, headache, or visual changes. - Related Data Home Medications Medication Instructions Recorded Confirmed metFORMIN HCL [Glucophage] 500 mg PO BID 03/01/20 12/25/20 Cinnamon Bark [Cinnamon] 500 mg PO DAILY 12/25/20 12/25/20 Saw [place] 500 mg PO DAILY 12/25/20 12/25/20 Previous Rx's Medication Instructions Recorded Doxycycline Monohydrate [Monodox] 100 mg PO BID 1 Days #2 cap 12/09/20 Cephalexin [Keflex] 500 mg PO Q6HR 10 Days #40 cap 12/25/20 Sulfamethox-Tmp 800-160Mg [Bactrim 1 tab PO Q12HR #20 tab 12/25/20 DS 800-160 mg] Allergies Allergy/AdvReac Type Severity Reaction Status Date / Time No Known Allergies Allergy Verified 12/25/20 11:18 Review of Systems ROS Statement: Those systems with pertinent positive or pertinent negative responses have been documented in the HPI. ROS Other: All systems not noted in ROS Statement are negative. Past Medical History Past Medical History: Diabetes Mellitus, Hypertension, Thyroid Disorder Additional Past Medical History / Comment(s): Hydroadenitis Suppurativa, Vitamin d deficiency History of Any Multi-Drug Resistant Organisms: None Reported Past Surgical History: No Surgical Hx Reported Past Anesthesia/Blood Transfusion Reactions: No Reported Reaction Past Psychological History: Anxiety Smoking Status: Current every day smoker Past Alcohol Use History: None Reported Past Drug Use History: None Reported General Exam Limitations: no limitations General appearance: alert, in no apparent distress Head exam: Present: atraumatic, normocephalic, normal inspection Eye exam: Present: normal appearance, PERRL, EOMI. Absent: scleral icterus, conjunctival injection, periorbital swelling ENT exam: Present: normal exam, mucous membranes moist Neck exam: Present: normal inspection, full ROM. Absent: tenderness, meningismus, lymphadenopathy Respiratory exam: Present: normal lung sounds bilaterally. Absent: respiratory distress, wheezes, rales, rhonchi, stridor Cardiovascular Exam: Present: regular rate, normal rhythm, normal heart sounds. Absent: systolic murmur, diastolic murmur, rubs, gallop, clicks GI/Abdominal exam: Present: soft, normal bowel sounds. Absent: distended, tenderness, guarding, rebound, rigid Extremities exam: Present: other (Patient has a 3 cm abscess noted to the left inner upper thigh.) Course Vital Signs 12/25/20 09:53 Temperature 98.3 F Pulse Rate 101 H Respiratory 18 Rate Blood Pressure 146/98 O2 Sat by Pulse 94 L Oximetry Medical Decision Making - Medical Decision Making Patient does have abscess noted to inner upper thigh. I did incise and drain this, purulent material expel. Patient was recently on doxycycline so started her on Keflex and Bactrim. Patient will follow up with her doctor and will return here for any worsening symptoms. - Lab Data Lab Results 12/25/20 Range/Units 11:18 Urine HCG, Qual Not Detected (Not Detectd) Disposition Clinical Impression: Abscess Disposition: HOME SELF-CARE Condition: Good Instructions (If sedation given, give patient instructions): Abscess Incision and Drainage (ED) Additional Instructions: Please take antibiotics as directed. Do warm compresses and sitz bath every few hours. Follow up with primary care. Return to the ER in 1-2 days for any worsening symptoms. Prescriptions: Sulfamethox-Tmp 800-160Mg [Bactrim DS 800-160 mg] 1 tab PO Q12HR #20 tab Cephalexin [Keflex] 500 mg PO Q6HR 10 Days #40 cap Is patient prescribed a controlled substance at d/c from ED?: No Referrals: Jean Monson MD [Primary Care Provider] - 1-2 days Time of Disposition: 12:09
[2020-12-25 12:45] VITALS: BP 134/79; PULSE 103; TEMP 98.2
== END 2020-12-25 12:45 | disposition home or self-care (01) ==
LOC: EC 09:28
DX: L02.416 Cutaneous abscess of left lower limb (principal); E11.9 Type 2 diabetes mellitus without complications; F17.200 Nicotine dependence, unspecified, uncomplicated; Z79.84 Long term (current) use of oral hypoglycemic drugs
CPT/HCPCS: 81025; 99283; 10060; J2001

== ENCOUNTER 2020-12-28 03:56 | Emergency (ER) | payer OTHER ==
[2020-12-28 04:02] VITALS: BP 178/75; PULSE 113; RESP 20; TEMP 98
--- NOTE | 2020-12-28 05:26 | ED ---
Skin/Abscess/FB HPI <Ash Santiago - Last Filed: 12/28/20 06:19> - General Source: patient Mode of arrival: ambulatory Limitations: no limitations - History of Present Illness MD complaint: abscess/boil -: days(s) Tetanus Up to Date: yes Location: LLE Consistency: constant Improves with: none Worsens with: none Context: none <Victor Manuel Xiao - Last Filed: 12/28/20 06:21> - General Chief complaint: Skin/Abscess/Foreign Body Stated complaint: Thigh abscesses Time Seen by Provider: 12/28/20 05:19 - Related Data Home Medications Medication Instructions Recorded Confirmed metFORMIN HCL [Glucophage] 500 mg PO BID 03/01/20 12/25/20 Cinnamon Bark [Cinnamon] 500 mg PO DAILY 12/25/20 12/25/20 Saw [place] 500 mg PO DAILY 12/25/20 12/25/20 Previous Rx's Medication Instructions Recorded Doxycycline Monohydrate [Monodox] 100 mg PO BID 1 Days #2 cap 12/09/20 Cephalexin [Keflex] 500 mg PO Q6HR 10 Days #40 cap 12/25/20 Fluconazole [Diflucan] 150 mg PO ONCE #1 tab 12/25/20 Sulfamethox-Tmp 800-160Mg [Bactrim 1 tab PO Q12HR #20 tab 12/25/20 DS 800-160 mg] Allergies Allergy/AdvReac Type Severity Reaction Status Date / Time No Known Allergies Allergy Verified 12/28/20 04:02 Review of Systems ROS Other: All systems not noted in ROS Statement are negative. <Ash Santiago - Last Filed: 12/28/20 06:19> ROS Other: All systems not noted in ROS Statement are negative. Constitutional: Denies: fever, chills Respiratory: Denies: dyspnea Cardiovascular: Denies: chest pain, palpitations Skin: Reports: as per HPI <Victor Manuel Xiao - Last Filed: 12/28/20 06:21> ROS Statement: Those systems with pertinent positive or pertinent negative responses have been documented in the HPI. Past Medical History Past Medical History: Diabetes Mellitus, Hypertension, Thyroid Disorder Additional Past Medical History / Comment(s): Hydroadenitis Suppurativa, Vitamin d deficiency History of Any Multi-Drug Resistant Organisms: None Reported Past Surgical History: No Surgical Hx Reported Past Anesthesia/Blood Transfusion Reactions: No Reported Reaction Past Psychological History: Anxiety Smoking Status: Current every day smoker Past Alcohol Use History: None Reported Past Drug Use History: None Reported <Tylermark anthonyVictor Manuel - Last Filed: 12/28/20 06:21> General Exam Limitations: no limitations General appearance: alert, in no apparent distress Skin exam: Present: warm, dry, intact, normal color, other (Patient has approximately 4-5 cm abscess to the medial aspect of left thigh just distal to the groin. Also 3-4 cm abscess posterior lateral aspect left thigh.) <DameonVictor Manuel - Last Filed: 12/28/20 06:21> Course Vital Signs 12/28/20 03:58 Temperature 98 F Pulse Rate 113 H Respiratory 20 Rate Blood Pressure 178/75 O2 Sat by Pulse 94 L Oximetry Procedures - Incision & Drainage Consent Obtained: written consent Site: lower extremity (left) Size (cm): 4 (second abscess 3cm) Anesthetic Used: lidocaine 1% Amount (mLs): 6 (second abscess 4ml) I&D Cleaning Method: Alcohol Wipe Sterile Field Used?: No Scalpel Used: #11 I&D Drainage Obtained: Pus, Blood Packing: Iodoform Culture Obtained?: No Patient Tolerated Procedure: well, no complications <Ash Santiago - Last Filed: 12/28/20 06:19> Disposition <Ash Santiago - Last Filed: 12/28/20 06:19> Is patient prescribed a controlled substance at d/c from ED?: No <DameonVictor Manuel - Last Filed: 12/28/20 06:21> Clinical Impression: Abscess Disposition: HOME SELF-CARE Condition: Good Instructions (If sedation given, give patient instructions): Abscess Incision and Drainage (DC) Referrals: Jean Monson MD [Primary Care Provider] - 1-2 days
[2020-12-28] MEDS ORDERED: LIDOCAINE 1% INJ 10MG/ML (20 ML MDV) SQ ONE (05:40)
== END 2020-12-28 06:28 | disposition home or self-care (01) ==
LOC: EC 03:56
DX: L02.416 Cutaneous abscess of left lower limb (principal); E11.9 Type 2 diabetes mellitus without complications; I10 Essential (primary) hypertension; F41.9 Anxiety disorder, unspecified; F17.200 Nicotine dependence, unspecified, uncomplicated; Z79.84 Long term (current) use of oral hypoglycemic drugs
CPT/HCPCS: 99282; 10060; J2001

== ENCOUNTER 2021-07-21 14:49 | Emergency (ER) | payer OTHER ==
[2021-07-21 15:31] VITALS: BP 155/83; PULSE 92; RESP 18; TEMP 98.3
--- NOTE | 2021-07-21 16:18 | ED ---
General Adult HPI - General Chief complaint: Urogenital Stated complaint: Urogenital Time Seen by Provider: 07/21/21 16:09 Source: patient, RN notes reviewed Mode of arrival: ambulatory Limitations: no limitations - History of Present Illness Initial comments: Well-appearing 26-year-old female presents to the emergency room with complaints of vaginal irritation and redness. She states that it is a yeast infection and she has had these in the past. She thinks it is related to her Jardiance that she just started 3 months ago. She states that she's had these type of yeast infections in the past. She denies any vaginal bleeding or pain. She states that it is red and tender to touch. No fevers. -: days(s) (4) Location: genitals Associated Symptoms: denies other symptoms Treatments Prior to Arrival: none - Related Data Home Medications Medication Instructions Recorded Confirmed metFORMIN HCL [Glucophage] 500 mg PO BID 03/01/20 12/25/20 Cinnamon Bark [Cinnamon] 500 mg PO DAILY 12/25/20 12/25/20 Saw [place] 500 mg PO DAILY 12/25/20 12/25/20 Previous Rx's Medication Instructions Recorded Doxycycline Monohydrate [Monodox] 100 mg PO BID 1 Days #2 cap 12/09/20 Cephalexin [Keflex] 500 mg PO Q6HR 10 Days #40 cap 12/25/20 Fluconazole [Diflucan] 150 mg PO ONCE #1 tab 12/25/20 Sulfamethox-Tmp 800-160Mg [Bactrim 1 tab PO Q12HR #20 tab 12/25/20 DS 800-160 mg] Fluconazole [Diflucan] 150 mg PO ONCE #1 tab 07/21/21 Allergies Allergy/AdvReac Type Severity Reaction Status Date / Time No Known Allergies Allergy Verified 07/21/21 15:31 Review of Systems ROS Statement: Those systems with pertinent positive or pertinent negative responses have been documented in the HPI. ROS Other: All systems not noted in ROS Statement are negative. Past Medical History Past Medical History: Diabetes Mellitus, Hypertension, Thyroid Disorder Additional Past Medical History / Comment(s): Hydroadenitis Suppurativa, Vitamin d deficiency History of Any Multi-Drug Resistant Organisms: None Reported Past Surgical History: No Surgical Hx Reported Past Anesthesia/Blood Transfusion Reactions: No Reported Reaction Past Psychological History: Anxiety Smoking Status: Current every day smoker Past Alcohol Use History: None Reported Past Drug Use History: None Reported General Exam Limitations: no limitations General appearance: alert, in no apparent distress Head exam: Present: atraumatic, normocephalic, normal inspection Eye exam: Present: normal appearance, EOMI ENT exam: Present: normal exam, normal oropharynx, mucous membranes moist Neck exam: Present: normal inspection, full ROM. Absent: tenderness, meningismus, lymphadenopathy Respiratory exam: Present: normal lung sounds bilaterally. Absent: respiratory distress, wheezes, rales, rhonchi, stridor Cardiovascular Exam: Present: regular rate, normal rhythm, normal heart sounds. Absent: systolic murmur, diastolic murmur, rubs, gallop, clicks GI/Abdominal exam: Present: soft, normal bowel sounds. Absent: distended, tenderness, guarding, rebound, rigid Extremities exam: Present: full ROM, normal capillary refill. Absent: tenderness Neurological exam: Present: alert, oriented X3, normal gait Psychiatric exam: Present: normal affect, normal mood Skin exam: Present: warm, dry, intact, normal color. Absent: rash, cyanosis, diaphoretic Course Vital Signs 07/21/21 15:27 Temperature 98.3 F Pulse Rate 92 Respiratory 18 Rate Blood Pressure 155/83 O2 Sat by Pulse 97 Oximetry Medical Decision Making - Medical Decision Making Patient states that she's had yeast infections before and this is similar to the previous infections she has had. She states that Diflucan works for her. She was offered a pelvic exam and she declined. She denies any vaginal bleeding. She was willing to have her urine sent for STI testing. Her urine test is negative. Blood glucose is within normal limits. Her abdomen is soft and nontender. She is afebrile. She was given a dose of Diflucan in the emergency room and a prescription for an additional tablet to be taken in 3 days as needed. She was instructed to follow-up with her primary care doctor next week. Case discussed with Dr. Mace - Lab Data Lab Results 07/21/21 07/21/21 07/21/21 Range/Units 16:29 16:32 16:33 POC Glucose (mg/dL) 109 H (75-99) mg/dL POC Glu Locker Operator ID Kerrie Veronica Urine Color Yellow Urine Appearance Turbid H (Clear) Urine pH 6.0 (5.0-8.0) Ur Specific [place] 1.034 (1.001-1.035) Urine Protein 1+ H (Negative) Urine Glucose (UA) Negative (Negative) Urine Ketones Trace H (Negative) Urine Blood Small H (Negative) Urine Nitrite Negative (Negative) Urine Bilirubin Negative (Negative) Urine Urobilinogen 2.0 (<2.0) mg/dL Ur Leukocyte Esterase Large H (Negative) Urine RBC 20 H (0-5) /hpf Urine WBC 9 H (0-5) /hpf Ur Squamous Epith Cells 33 H (0-4) /hpf Urine Bacteria Rare H (None) /hpf Hyaline Casts 14 H (0-2) /lpf Urine Mucus Many H (None) /hpf Urine Yeast (Budding) Occasional H (None) /hpf Urine HCG, Qual Not Detected (Not Detectd) Disposition Clinical Impression: Yeast dermatitis Disposition: HOME SELF-CARE Additional Instructions: Take medication as prescribed and follow-up with the primary care doctor in 1 week. Return to the emergency room with a normal worsening symptoms. Prescriptions: Fluconazole [Diflucan] 150 mg PO ONCE #1 tab Is patient prescribed a controlled substance at d/c from ED?: No Referrals: Jean Monson MD [Primary Care Provider] - 1-2 days Time of Disposition: 20:52
[2021-07-21 16:36] LABS: Glucose,Whole Blood 109 mg/dL (75-99)
[2021-07-21 16:47] LABS: Appearance,Urine Turbid (Clear); Bacteria,Urine Rare /hpf; Bilirubin,Urine Negative (Negative); Blood,Urine Small (Negative); Budding Yeast,Urine Occasional /hpf; Color,Urine Yellow; Glucose,Urine (UA) Negative (Negative); Hyaline Casts,Urine 14 /lpf (0-2); Ketones,Urine Trace (Negative); Leukocyte Esterase,Urine Large (Negative); Mucus,Urine Many /hpf; Nitrite,Urine Negative (Negative); Protein,Urine 1+ (Negative); RBC,Urine 20 /hpf (0-5); Specific Gravity,Urine 1.034 (1.001-1.035); Squamous Epithelial Cell,Urine 33 /hpf (0-4); WBC,Urine 9 /hpf (0-5)
[2021-07-21] MEDS ORDERED: FLUCONAZOLE 150 MG TAB PO STA (17:02)
[2021-07-23 14:49] LABS: C. trachomatis,PCR Negative (Neg,Equiv); Chlamydia trachomatis Source Urine
[2021-07-23 15:49] LABS: N. gonorrhoeae,PCR Negative (Neg,Equiv); Neisseria Source Urine
== END 2021-07-21 17:34 | disposition home or self-care (01) ==
LOC: EC 14:49
DX: B37.3 Candidiasis of vulva and vagina (principal); E11.9 Type 2 diabetes mellitus without complications; I10 Essential (primary) hypertension; F41.9 Anxiety disorder, unspecified; F17.200 Nicotine dependence, unspecified, uncomplicated; Z79.84 Long term (current) use of oral hypoglycemic drugs
CPT/HCPCS: 36415; 81001; 81025; 87491; 87591; 99283

== ENCOUNTER 2021-10-15 08:45 | Emergency (ER) | payer OTHER ==
[2021-10-15] MEDS ORDERED: LIDOCAINE 1% INJ 10MG/ML (20 ML MDV) SQ ONE (09:00)
[2021-10-15 09:06] VITALS: BP 145/75; PULSE 112; RESP 14; TEMP 98.2
[2021-10-15] MEDS ORDERED: CLINDAMYCIN 150 MG CAP PO STA (09:36)
--- NOTE | 2021-10-15 09:40 | ED ---
General Adult HPI - General Chief complaint: Skin/Abscess/Foreign Body Stated complaint: boil on right thigh Time Seen by Provider: 10/15/21 08:58 Source: patient, RN notes reviewed Mode of arrival: ambulatory Limitations: no limitations - History of Present Illness Initial comments: 26-year-old female with a past medical history of diabetes mellitus, h ypertension, hidradenitis per kilo presents for abscess. Patient states she has an abscess on the posterior right upper thigh. Patient states that his been there for a couple days. States his abscess has been recurrent in the past. Patient denies fevers or chills.Patient has no other complaints at this time including shortness of breath, chest pain, abdominal pain, nausea or vomiting, headache, or visual changes. - Related Data Home Medications Medication Instructions Recorded Confirmed metFORMIN HCL [Glucophage] 500 mg PO BID 03/01/20 12/25/20 Cinnamon Bark [Cinnamon] 500 mg PO DAILY 12/25/20 12/25/20 Saw [place] 500 mg PO DAILY 12/25/20 12/25/20 Previous Rx's Medication Instructions Recorded Doxycycline Monohydrate [Monodox] 100 mg PO BID 1 Days #2 cap 12/09/20 Cephalexin [Keflex] 500 mg PO Q6HR 10 Days #40 cap 12/25/20 Fluconazole [Diflucan] 150 mg PO ONCE #1 tab 12/25/20 Sulfamethox-Tmp 800-160Mg [Bactrim 1 tab PO Q12HR #20 tab 12/25/20 DS 800-160 mg] Fluconazole [Diflucan] 150 mg PO ONCE #1 tab 07/21/21 metroNIDAZOLE [Flagyl] 500 mg PO ONCE #4 tab 07/30/21 Clindamycin [Cleocin] 300 mg PO Q8H 7 Days #42 cap 10/15/21 Fluconazole [Diflucan] 150 mg PO DAILY #2 tab 10/15/21 Allergies Allergy/AdvReac Type Severity Reaction Status Date / Time No Known Allergies Allergy Verified 10/15/21 08:47 Review of Systems ROS Statement: Those systems with pertinent positive or pertinent negative responses have been documented in the HPI. ROS Other: All systems not noted in ROS Statement are negative. Past Medical History Past Medical History: Diabetes Mellitus, Hypertension, Thyroid Disorder Additional Past Medical History / Comment(s): Hydroadenitis Suppurativa, Vitamin d deficiency History of Any Multi-Drug Resistant Organisms: None Reported Past Surgical History: No Surgical Hx Reported Past Anesthesia/Blood Transfusion Reactions: No Reported Reaction Past Psychological History: Anxiety Smoking Status: Current every day smoker Past Alcohol Use History: None Reported Past Drug Use History: None Reported General Exam Limitations: no limitations General appearance: alert, in no apparent distress Head exam: Present: atraumatic Eye exam: Present: normal appearance, PERRL, EOMI. Absent: scleral icterus, conjunctival injection ENT exam: Present: normal exam, mucous membranes moist Neck exam: Present: normal inspection, full ROM Respiratory exam: Present: normal lung sounds bilaterally. Absent: respiratory distress, wheezes Cardiovascular Exam: Present: regular rate, normal rhythm, normal heart sounds Extremities exam: Present: other (Patient is a 3 cm x 3 cm abscess on the posterior right upper thigh. No significant surrounding erythema.) Course Vital Signs 10/15/21 10/15/21 08:47 09:00 Temperature 97.0 F L 98.2 F Pulse Rate 129 H 112 H Respiratory 20 14 Rate Blood Pressure 162/93 145/75 O2 Sat by Pulse 96 97 Oximetry Procedures - Incision & Drainage Consent Obtained: verbal consent Indication: abscess Size (cm): 3 Anesthetic Used: lidocaine 1% Amount (mLs): 3 I&D Cleaning Method: Alcohol Wipe Sterile Field Used?: Yes Scalpel Used: #11 I&D Drainage Obtained: Pus Culture Obtained?: Yes Patient Tolerated Procedure: well, no complications Medical Decision Making - Medical Decision Making Patient initially tachycardic likely secondary to anxiety as she is near tears in anticipation of the incision and drainage. However this is improving. Vitals otherwise stable and patient well appearing. No fevers. Incision and drainage performed. Purulent material expelled. No complications. Patient did request packing to be placed. Patient will be discharged on clindamycin. Will return here for any worsening symptoms. Disposition Clinical Impression: Abscess Disposition: HOME SELF-CARE Condition: Good Instructions (If sedation given, give patient instructions): Abscess (ED) Additional Instructions: Take antibiotic as directed. Do warm compresses. Remove packing in 2 days. Follow-up with your doctor. Return to the emergency room for any worsening symptoms. Prescriptions: Clindamycin [Cleocin] 300 mg PO Q8H 7 Days #42 cap Fluconazole [Diflucan] 150 mg PO DAILY #2 tab Is patient prescribed a controlled substance at d/c from ED?: No Referrals: Jean Monson MD [Primary Care Provider] - 1-2 days Time of Disposition: 09:38
== END 2021-10-15 10:27 | disposition home or self-care (01) ==
LOC: EC 08:45
DX: L02.415 Cutaneous abscess of right lower limb (principal); E11.9 Type 2 diabetes mellitus without complications; I10 Essential (primary) hypertension; E07.9 Disorder of thyroid, unspecified; F41.9 Anxiety disorder, unspecified; F17.200 Nicotine dependence, unspecified, uncomplicated; Z79.84 Long term (current) use of oral hypoglycemic drugs
CPT/HCPCS: 99282; 10060; J2001

== ENCOUNTER → 2023-02-27 | Outpatient (CLI) | payer OTHER ==
--- NOTE | 2023-02-27 16:05 | XR ---
EXAMINATION TYPE: XR mandible complete DATE OF EXAM: 02/27/2023 3:58 PM INDICATION: Patient age:Female; 27 years old; Reason for study: G43.909 ,27.2; suspicious area on x-ray at the chiropractic office COMPARISON: None TECHNIQUE: 4 views of the mandible were obtained. FINDINGS: Negative concern isn't well-visualized There is no fracture identified. No lytic or sclerotic bony lesion is present. The TMJs are within no rmal limits. The visualized facial bones are intact. The mastoid air cells and paranasal sinuses appe ar well-aerated. IMPRESSION: No correlate for reported history of left mandible lesion. Consider CT facial bones for complete demetri luation. No evidence of fracture.
== END | disposition home or self-care (01) ==
LOC: RADXRMAIN 15:33
PROVIDERS: ATTEND Family Medicine
DX: G43.909 Migraine, unspecified, not intractable, without status migrainosus (principal); M27.2 Inflammatory conditions of jaws
CPT/HCPCS: 70110

== ENCOUNTER 2024-05-05 03:10 | Emergency (ER) | payer OTHER ==
--- NOTE | 2024-06-07 16:13 | US ---
EXAMINATION TYPE: US pelvis complete transvag DATE OF EXAM: 05/05/2024 COMPARISON: No comparison available on downtime PACS. CLINICAL INDICATION: Spotting TECHNIQUE: Transvaginal (TV) and Transabdominal (TA) . Transabdominal sonographic images of the pelvi s were acquired. Transvaginal sonographic images were medically necessary to better assess the follow ing anatomy: IUP Date of LMP: EXAM MEASUREMENTS: Uterus: 8.4 x 5.0 x 5.2 cm Endometrial Stripe: cm Right Ovary: Not identified cm Left Ovary: 2.8 x 3.2 x 2.6 cm No intrauterine is identified. No gestational sac or cardiac motion is evident. Correlate w ith the beta hCG. Spontaneous , ectopic , early are within the differentia l. IMPRESSION: 1. No intrauterine . Serial beta hCG and follow-up imaging recommended [facility], , 06/07/2024 4:11 PM
== END 2024-05-05 09:54 | disposition home or self-care (01) ==
LOC: EC 03:10
CPT/HCPCS: 76801; 76817; 86850; 86900; 86901; 99284

== ENCOUNTER → 2024-05-25 | Outpatient (CLI) | payer OTHER ==
[2024-05-25 15:26] VITALS: BP 154/79; PULSE 88; RESP 16; TEMP 97.9
--- NOTE | 2024-05-25 15:45 | P.SLEEP ---
History of Present Illness DATE: 05/25/2024 CONSULTATION/NEW PATIENT EVALUATION HISTORY OF PRESENT ILLNESS/SLEEP-WAKE EVALUATION: 29-year-old lady had been ev aluated in the sleep center for possible obstructive sleep apnea hypopnea syndrome. SLEEP SCHEDULE: Usually sleep schedule from 2- 3 AM until 89 AM on weekdays and until 1011 AM on weekend. FALLING ASLEEP: Sometimes patient has difficulties to fall asleep, has TV set in bedroom. DURING SLEEP: Patient usually sleeps on the side position with snoring and witnessed episodes of stop breathing during the sleep. Patient wakes up from sleep 3 times with nocturia. Positive history of grinding teeth, heartburn, restless leg symptoms. No history of hypnogogical hallucinations, sleep paralysis, or cataplexy. DURING THE DAY/WAKE STATE: In the morning patient wake up tired, has difficulties to pay attention, falling asleep during the day. Positive history of episodes of depression and anxiety, problems with concentration.. [place] sleepiness scale is significantly increased to 17. Patient usually take 1 nap after work. PAST MEDICAL HISTORY: Hypertension, anxiety, acid reflux, diabetes mellitus. PAST SURGICAL HISTORY: None. MEDICATIONS: Please see below. SOCIAL HISTORY: Please see below FAMILY HISTORY: Sleep apnea, asthma, during the sleep, hypertension. REVIEW OF SYSTEMS: Snoring, multiple awakenings from sleep sleepiness during the day. No fevers. No double vision. No recent chest pain. No shortness of breath. No abdominal pain. No bleeding episodes. No blood in urine. No seizure episodes. PHYSICAL EXAMINATION: GENERAL: A pleasant patient without any distress. VITAL SIGNS: Please see below, weight 345.2 pounds, BMI 55.6. HEENT: PERRLA, EOMI. Evaluation of oropharynx showed tongue protrudes midline, low position of soft palate Mallampati 4. NECK: Supple. No JVD. Thyroid is not palpable. 20.25 inches in circumference. LUNGS: Clear to percussion and to auscultation. Good air exchange. No wheezing or rhonchi. HEART: S1, S2 regular. No murmurs, gallops or rubs. ABDOMEN: Soft and nontender. Bowel sounds are present. No organomegaly appreciated. Obese. EXTREMITIES: No clubbing or cyanosis. RISK INVESTIGATOR: Awake, alert, and oriented x3. Cranial nerves 2 to 7 intact. There is no fasciculation or atrophy noted. No focal deficits observed. ASSESSMENT: 1. Snoring, witnessed episodes of stop breathing during the sleep, extremely low position of soft palate Mallampati 4, extremely wide neck 20.25 inches in circumference, significant sleepiness with [place] Sleepiness Scale 17. Obstructive sleep apnea hypopnea syndrome. 2. Obesity, BMI 55.6. 3. Hypertension. 4. Anxiety. 5 acid reflux. 6 . Diabetes mellitus, recent hemoglobin A1c according to patient 8.0. PLAN: 1. Polysomnography for evaluation of patient's breathing during sleep. 2. Following plan after reading sleep study. 3. Preferable position during sleep on the side. 4. No driving if patient feels any sleepiness. Patient is aware of civil and criminal liability for unsafe driving. 5. Sleep hygiene with regular sleep time for at least 7.5-8 hours. 6. Watching and aggressive losing weight. Thank you very much for referring this patient for consultation. Sincerely, Adi Wang MD, PhD, FAASM. Diplomat of [place] [employer], Sleep Medicine Board by [place] [employer] [employer] Medical Art Therapist [facility] [place] cc: Jean Monson MD Past Medical History Past Medical History: Diabetes Mellitus, Hypertension Additional Past Medical History / Comment(s): Hydroadenitis Suppurativa, Vitamin d deficiency , pcos History of Any Multi-Drug Resistant Organisms: None Reported Past Surgical History: No Surgical Hx Reported Past Anesthesia/Blood Transfusion Reactions: No Reported Reaction Past Psychological History: Anxiety Smoking Status: Former smoker, Vaper Past Alcohol Use History: None Reported Past Drug Use History: None Reported Medications and Allergies Home Medications Medication Instructions Recorded Confirmed Type Fluconazole [Diflucan] 150 mg PO ONCE #1 tab 11/24/22 05/25/24 Rx Empagliflozin [Jardiance] 25 mg PO DAILY 05/25/24 05/25/24 History Famotidine 40 mg PO DAILY 05/25/24 05/25/24 History Allergies Allergy/AdvReac Type Severity Reaction Status Date / Time No Known Allergies Allergy Verified 11/24/22 16:39 Physical Exam Vitals: Vital Signs Temp Pulse Resp BP Pulse Ox 05/25/24 15:24 97.9 F 88 16 154/79 96 Intake and Output 05/25/24 05/25/24 05/25/24 06:59 14:59 22:59 Other: Weight 156.489 kg Sleep Note - Sleep Data ESS Total: 17 - Sleep Note Sleep Note: Temperature: 97.9 F Pulse Rate: 88 Respiratory Rate: 16 Blood Pressure: 154/79 SpO2: 96 Height: 5 ft 6 in Weight: 156.489 kg BMI: Neck Circumference: 20.2
== END ==
LOC: 3 N SLEEP 14:49
PROVIDERS: ATTEND Internal Medicine
CPT/HCPCS: 99211

== ENCOUNTER 2024-07-17 19:51 | Outpatient (CLI) | payer OTHER ==
--- NOTE | 2024-07-21 10:27 | P.PCN ---
Description of Procedure: POLYSOMNOGRAPHY REPORT PROCEDURE(S)/DATE(S): Polysomnography 07/17/2024 CLINICAL: Patient has been seen in the sleep center for evaluation of obstructive sleep apnea-hypopnea syndrome. Please see my consultation. Sleep study has been done for evaluation of patient breathing during the sleep. PROCEDURE: The standard montage for clinical polysomnography included the electroencephalogram, the electrooculogram, the mentalis surface electromyography and Lead II cardiography. The respiratory battery consisted of measurements of nasal/buccal air flow, pressure transducer measurements from nose, thoracic and/or abdominal effort and intercostal surface electromyography. Video monitoring has been done to check for any parasomnia events. Nocturnal oxyhemoglobin saturations were obtained by finger oximetry. Step-kohli titration with positive airway pressure was utilized to control the respiratory events, if necessary. RESULTS: During the diagnostic sleep study sleep efficiency was normal 89.9%. Latency to sleep onset was normal at 15.0 min. Sleep architecture showed stage NI was increased to 13.7%, Delta sleep was absent 0%, REM sleep was normal 23.0%. Respiratory channel showed 6 obstructive apneas, 0 mixed apneas, 0 central apneas, 157 hypopneas with lowest oxygen level 63%. Total apnea hypopnea index was 28.3. Heart rate was in the range between 80 and 92, average 86. EMG showed 0 periodic limb movements per hour . IMPRESSIONS: 1. Moderate, close to severe obstructive sleep apnea hypopnea syndrome with severe oxygen desaturation to 63%. 2. No significant periodic limb movements have been documented. Please see other impressions from consultation PLAN: 1. The patient will have PAP titration for correction of respiratory abnormalities during the sleep. 2. Losing weight program. 3. Sleep hygiene with regular time in bed for at least 7-1/2 hours. 4. No driving if feeling sleepiness. Thank you very much for allowing me to participate in the management of your patient. Sincerely, Adi Wang MD, PhD, FAASM. Diplomat of [place] [employer], Sleep Medicine Board by [place] [employer] Operator [facility] [place] cc: Jean Monson MD
== END 2024-07-18 05:03 | disposition home or self-care (01) ==
LOC: 3 N SLEEP 19:51
PROVIDERS: ATTEND Internal Medicine
DX: G47.33 Obstructive sleep apnea (adult) (pediatric) (principal); G47.36 Sleep related hypoventilation in conditions classified elsewhere; F17.200 Nicotine dependence, unspecified, uncomplicated
CPT/HCPCS: 95810